=== PATIENT | male | born 1940 | race Caucasian/White ===

== ENCOUNTER 2017-05-18 07:06 | Outpatient (CLI) | payer MEDICARE, OTHER ==
[2015-09-29 14:24] VITALS: BP 106/67
[2017-05-18 07:49] LABS: eGFR (African) > 60; eGFR (Non-African) > 60
== END 2017-05-18 07:15 ==
LOC: LAB 07:06
PROVIDERS: ATTEND Internal Medicine Cardiovascular Disease
DX: I10 Essential (primary) hypertension (principal); I25.10 Atherosclerotic heart disease of native coronary artery without angina pectoris
CPT/HCPCS: 36415; 80053; 80061

== ENCOUNTER 2017-07-15 13:37 | Outpatient (CLI) | payer MEDICARE, OTHER ==
[2015-09-29 14:24] VITALS: BP 106/67
== END 2017-07-15 13:40 ==
LOC: POD 13:37
PROVIDERS: ATTEND Podiatrist
DX: B35.1 Tinea unguium (principal); M79.674 Pain in right toe(s); M79.675 Pain in left toe(s); M21.371 Foot drop, right foot
CPT/HCPCS: G0463

== ENCOUNTER 2017-11-29 07:11 | Outpatient (CLI) | payer MEDICARE, OTHER ==
[2015-09-29 14:24] VITALS: BP 106/67
[2017-11-29 09:00] LABS: eGFR (African) > 60; eGFR (Non-African) > 60
== END 2017-11-29 07:12 ==
LOC: LAB 07:11
PROVIDERS: ATTEND Internal Medicine Cardiovascular Disease
DX: E78.00 Pure hypercholesterolemia, unspecified (principal); I25.10 Atherosclerotic heart disease of native coronary artery without angina pectoris
CPT/HCPCS: 80053; 80061